=== PATIENT | male | born 1955 | race Caucasian/White ===

== ENCOUNTER 2018-02-06 16:15 | Emergency (ER) | payer OTHER ==
--- OUTSIDE RECORDS SUMMARY | 2018-02-06 16:17 | XMS REPORT | Clinical Summary ---
:1955 Author Organization [facility] Address [address] [place] [address] Care Team Providers Name Role Phone Emmy Carlisle MD Primary Care Provider Allergies Active Allergy Reactions Severity Noted Date Comments Penicillins Other (See Comments) 03/27/2017 Zinc Hives 03/27/2017 Current Medications Prescription Sig. Disp. Refills Start Date End Date Status CALCIUM ORAL Take by mouth. Active diclofenac Take 50 mg by Active (VOLTAREN) 50 MG mouth as EC tablet needed. clindamycin Take 1 capsule 42 capsule 0 03/27/2017 Discontinued (CLEOCIN) 300 MG (300 mg total) 7 capsule by mouth 3 (three) times a day for 14 days. mupirocin Apply topically 30 g 2 03/27/2017 Discontinued (BACTROBAN) 2 % 2 (two) times a 7 ointment day for 14 days. 1 inch ribbon to nasal irrigation, twice daily mupirocin Apply topically 30 g 2 03/27/2017 (BACTROBAN) 2 % 2 (two) times a 7 ointment day for 14 days. 1 inch ribbon to nasal irrigation, twice daily clindamycin Take 1 capsule 42 capsule 0 03/27/2017 (CLEOCIN) 300 MG (300 mg total) 7 capsule by mouth 3 (three) times a day for 14 days. Active Problems No known active problems Encounters Date Type Specialty Care Team Description 03/27/2017 Office Visit Otolaryngology Carmen Avalos MD Chronic maxillary sinusitis (Primary Dx) 03/27/2017 Orders Only Otolaryngology Jose Mcbride MD after 02/05/2017 Family History Medical History Relation Name Comments Colon cancer Father Cancer Mother Relation Name Status Comments Father Mother Social History Tobacco Use Types Packs/Day Years Used Date Current Every Day Smoker 1 Alcohol Use Drinks/Week oz/Week Comments No Sex Assigned at Date Recorded Not on file Last Filed Vital Signs Vital Sign Reading Time Taken Blood Pressure 113/68 03/27/2017 4:09 PM CDT Pulse 90 03/27/2017 4:09 PM CDT Temperature - - Respiratory Rate - - Oxygen Saturation - - Inhaled Oxygen Concentration - - Weight 89.8 kg (198 lb) 03/27/2017 4:09 PM CDT Height 180.3 cm (5' 11") 03/27/2017 4:09 PM CDT Body Mass Index 27.62 03/27/2017 4:09 PM CDT Plan of Treatment Health Maintenance Due Date Last Done Comments COLON CANCER SCREENING 2003 SHINGRIX VACCINE (#1) 2003 ZOSTER VACCINE 2013 INFLUENZA VACCINE 04/15/2018 Results Nasal culture (03/27/2017 5:02 PM) Component Value Ref Range Culture, nasal SEE NOTE Comment: CULTURE, HEAD OF ENGLISH/NASAL MICRO NUMBER:[id number] TEST STATUS: FINAL SPECIMEN SOURCE: LEFT NASAL CAVITY SPECIMEN QUALITY:ADEQUATE RESULT:Growth of normal oropharyngeal amaury. Specimen Performing Laboratory [facility] Throat culture (03/27/2017) Component Value Ref Range Throat culture SEE NOTE (A) Comment: CULTURE, THROAT MICRO NUMBER:[id number] TEST STATUS: FINAL SPECIMEN SOURCE: OROPHARYNXCULTURE SPECIMEN QUALITY:ADEQUATE RESULT:Light growth of Group C Streptococcus Beta-hemolytic Streptococci are predictably susceptible to penicillin and other beta-lactams. Susceptibility testing not routinely performed. COMMENT: Normal oropharyngeal amaury also present. Specimen Performing Laboratory [facility] Narrative FASTING: UNKNOWN after 02/05/2017
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
[2018-02-06] MEDS ORDERED: KETOROLAC 30 MG/ML INJ ONE (18:50)
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
== END 2018-02-06 19:21 | disposition home or self-care (01) ==
LOC: ER 16:15
DX: M79.672 Pain in left foot (principal); V49.49XA Driver injured in collision with other motor vehicles in traffic accident, initial encounter; E78.00 Pure hypercholesterolemia, unspecified; F17.210 Nicotine dependence, cigarettes, uncomplicated
CPT/HCPCS: 70450; 72125; 96372; 99285

== ENCOUNTER 2021-04-13 12:11 | Emergency (ER) | payer OTHER ==
--- NOTE | 2021-04-13 14:19 | ER ---
Nurse[facility] Name: Polina Martell Age: 66 yrs Sex: Male : 1955 Arrival Date: 04/13/2021 Time: 12:12 Bed 6 Private MD: Diagnosis: Encounter for removal of nerve block Presentation: 04/13 12:30 Chief complaint: Patient states: i had total knee replacement on Friday and got out tw2 and they didn't take my pain pump out. it was in [place] and i couldn't get back there. Coronavirus screen: At this time, the client does not indicate any symptoms associated with coronavirus-19. Ebola Screen: Patient denies travel to an Ebola-affected area in the 21 days before illness onset. Initial Sepsis Screen: Does the patient meet any 2 criteria? No. Patient's initial sepsis screen is negative. Does the patient have a suspected source of infection? No. Patient's initial sepsis screen is negative. Risk Assessment: Do you want to hurt yourself or someone else? Patient reports no desire to harm self or others. Onset of symptoms was April 13, 2021. 12:30 Method Of Arrival: Ambulatory tw2 12:30 Acuity: ASHLEY 3 tw2 12:33 Note pt states "its just a nerve block". tw2 Triage Assessment: 12:32 General: Appears uncomfortable, Behavior is calm, cooperative, appropriate for age. tw2 Pain: Complains of pain in right knee. Historical: - Allergies: 12:32 PENICILLINS; tw2 - PMHx: 12:32 High Cholesterol; Kidney stone; tw2 - PSHx: 12:32 knee, right; tw2 - Immunization history:: Adult Immunizations. - Social history:: Smoking status: . Screenin:36 Abuse screen: Denies threats or abuse. Denies injuries from another. Nutritional hb screening: No deficits noted. Tuberculosis screening: No symptoms or risk factors identified. Fall Risk None identified. Assessment: 13:37 General: Appears in no apparent distress. Behavior is calm, cooperative. Pain: Denies hb pain. Neuro: Level of Consciousness is awake, alert, obeys commands, Oriented to person, place, time, situation. Cardiovascular: Patient's skin is warm and dry. Respiratory: Respiratory effort is even, unlabored, Respiratory pattern is regular, symmetrical. GI: No signs and/or symptoms were reported involving the gastrointestinal system. : No signs and/or symptoms were reported regarding the genitourinary system. EENT: No signs and/or symptoms were reported regarding the EENT system. Derm: Skin is pink, warm \\T\\ dry. Musculoskeletal: No signs and/or symptoms reported regarding the musculoskeletal system. Vital Signs: 12:30 BP 133 / 92; Pulse 124; Resp 18; Temp 97.9(O); Pulse Ox 96% on R/A; tw2 ED Course: 12:12 Patient arrived in ED. ds1 12:32 Triage completed. tw2 12:32 Arm band placed on. tw2 13:36 Yolette Rai, RN is Primary Nurse. hb 13:36 Patient has correct armband on for positive identification. Bed in low position. Call hb light in reach. 13:37 Familia Taylor PA is PHCP. jr8 13:37 Nima Santos MD is Attending Physician. jr8 Administered Medications: No medications were administered Outcome: 14:18 Discharge ordered by . jr8 14:38 Patient left the ED. hb Signatures: Chely Chadwick ds1 Familia Taylor PA PA jr8 Yolette Rai RN Earlene Rosario RN RN tw2 Corrections: (The following items were deleted from the chart) 12:38 12:30 Acuity: ASHLEY 4 tw2 tw2
--- NOTE | 2021-04-13 14:19 | EDPHYS ---
Physician Documentation [facility] Name: Polina Martell Age: 66 yrs Sex: Male : 1955 Arrival Date: 04/13/2021 Time: 12:12 Bed 6 Private MD: ED Physician Nima Santos HPI: 04/13 14:12 This 66 yrs old Male presents to ER via Ambulatory with complaints of Other, jr8 need to remove pain pump after knee sx. 14:12 Associated signs and symptoms: The patient has no apparent associated signs or jr8 symptoms. The patient has not experienced similar symptoms in the past. The patient has been recently seen by a physician:. 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 Patient has a nerve block catheter placed to the right knee. [facility] himself. Patient was uncomfortable with this and came to the emergency room to see if we could evaluate and take catheter out.. Historical: - Allergies: 12:32 PENICILLINS; tw2 - PMHx: 12:32 High Cholesterol; Kidney stone; tw2 - PSHx: 12:32 knee, right; tw2 - Immunization history:: Adult Immunizations. - Social history:: Smoking status: . ROS: 14:12 Eyes: Negative for injury, pain, redness, and discharge, ENT: Negative for injury, jr8 pain, and discharge, Neck: Negative for injury, pain, and swelling, Cardiovascular: Negative for chest pain, palpitations, and edema, Respiratory: Negative for shortness of breath, cough, wheezing, and pleuritic chest pain, Abdomen/GI: Negative for abdominal pain, nausea, vomiting, diarrhea, and constipation, Back: Negative for injury and pain, MS/Extremity: Negative for injury and deformity, Skin: Negative for injury, rash, and discoloration, Neuro: Negative for headache, weakness, numbness, tingling, and seizure. Exam: 14:12 Constitutional: This is a well developed, well nourished patient who is awake, alert, jr8 and in no acute distress. Cardiovascular: Regular rate and rhythm with a normal S1 and S2. No gallops, murmurs, or rubs. Normal PMI, no JVD. No pulse deficits. Respiratory: Lungs have equal breath sounds bilaterally, clear to auscultation and percussion. No rales, rhonchi or wheezes noted. No increased work of breathing, no retractions or nasal flaring. Skin: Warm, dry with normal turgor. Normal color with no rashes, no lesions, and no evidence of cellulitis. Neuro: Awake and alert, GCS 15, oriented to person, place, time, and situation. Cranial nerves II-XII grossly intact. Motor strength 5/5 in all extremities. Sensory grossly intact. 14:12 Musculoskeletal/extremity: Extremities: grossly normal except: noted in the right leg: Patient status post total knee. Dressing over incision line noted. No large amount of serous fluid or blood noted. Moderate amount of swelling and bruising noted to surgical region. Patient has only mild pain currently with range of motion. Normal sensation and pulses present. Nerve catheter noted to the right distal thigh. No surrounding erythema or active bleeding noted.. Vital Signs: 12:30 BP 133 / 92; Pulse 124; Resp 18; Temp 97.9(O); Pulse Ox 96% on R/A; tw2 MDM: 13:37 Patient medically screened. jr8 14:12 Data reviewed: vital signs, nurses notes, and as a result, I will discharge patient. jr8 Data interpreted: Pulse oximetry: on room air is 96 %. Interpretation: normal. Counseling: I had a detailed discussion with the patient and/or guardian regarding: the historical points, exam findings, and any diagnostic results supporting the discharge/admit diagnosis, the need for outpatient follow up, a orthopedic surgeon, to return to the emergency department if symptoms worsen or persist or if there are any questions or concerns that arise at home. ED course: We evaluated the right knee and catheter position. We were able to successfully remove the catheter without complication. Area was cleaned and dressed appropriately. Patient to follow-up with orthopedics otherwise.. Administered Medications: No medications were administered Disposition: 16:03 Co-signature as Attending Physician, Nima Santos MD I agree with the assessment and randolph plan of care. Disposition Summary: 04/13/21 14:18 Discharge Ordered Location: Home jr8 Problem: new jr8 Symptoms: have improved jr8 Condition: Stable jr8 Diagnosis - Encounter for removal of nerve block jr8 Followup: jr8 - With: Private Physician - When: 2 - 3 days - Reason: Recheck today's complaints, Continuance of care, Re-evaluation by your physician Discharge Instructions: - Discharge Summary Sheet jr8 - Continuous Peripheral Nerve Block Infusion Self-Care jr8 Forms: - Medication Reconciliation Form jr8 - Thank You Letter jr8 - Antibiotic Education jr8 - Prescription Opioid Use jr8 Signatures: Nima Santos MD MD cha Roszak, Josh, PA PA jr8 Earlene Rangel RN RN tw2
[2021-04-13 14:43] VITALS: BP 133/92; TEMP 97.9; O2SAT 96
== END 2021-04-13 14:38 | disposition home or self-care (01) ==
LOC: ER 12:11
DX: Z48.89 Encounter for other specified surgical aftercare (principal); E78.00 Pure hypercholesterolemia, unspecified; Z96.651 Presence of right artificial knee joint
CPT/HCPCS: 99281